=== PATIENT | male | born 1985 | race Caucasian/White ===

== ENCOUNTER 2018-12-13 14:19 | Emergency (ER) | payer BC, MEDICAID ==
[~2018-12-13] VITALS: Ht 198.1 cm; Wt 102.3 kg
[2018-12-13 14:34] VITALS: BP 108/77
[2018-12-13] MEDS ORDERED: MUPI22OI30 TOP (15:25)
== END 2018-12-13 15:38 | disposition home or self-care (01) ==
LOC: ER 14:19
DX: L73.9 Follicular disorder, unspecified (principal); M79.631 Pain in right forearm; M79.632 Pain in left forearm; Z59.0 Homelessness; Z79.899 Other long term (current) drug therapy
CPT/HCPCS: 99283

== ENCOUNTER 2021-11-15 15:25 | Emergency (ER) | payer MEDICAID ==
[~2021-11-15] VITALS: Ht 198.1 cm; Wt 82.7 kg
[2021-11-15 16:01] VITALS: BP 136/91
== END 2021-11-15 18:44 | disposition home or self-care (01) ==
LOC: ER 15:26
DX: F15.10 Other stimulant abuse, uncomplicated (principal); Z00.8 Encounter for other general examination; Z59.00 Homelessness unspecified
CPT/HCPCS: 70450; 99284

== ENCOUNTER 2023-03-09 21:57 | Emergency (ER) | payer MEDICAID ==
[~2023-03-09] VITALS: Ht 198.1 cm; Wt 85.5 kg
[2023-03-09] MEDS ORDERED: acetaminophen 325mg tablet PO ONE (22:20)
[2023-03-09 23:10] LABS: BASOPHILS % (AUTO) 0.3 % (0-1); EOSINOPHILS % (AUTO) 0 % (0-6); HEMATOCRIT 42.3 % (42.0-52.0); HEMOGLOBIN 13.9 g/dl (14.0-17.9); LYMPHOCYTES # (AUTO) 0.2 X10'3 (1.1-4.8); LYMPHOCYTES % (AUTO) 2.9 % (21-51); MEAN CORPUSCULAR HEMOGLOBIN 26.7 PG (27.0-31.0); MEAN PLATELET VOLUME 6.5 FL (7.4-10.4); MONOCYTES # (AUTO) 0.6 X10'3 (0-0.9); NEUTROPHILS # (AUTO) 7.7 X10'3 (1.8-7.7); NEUTROPHILS % (AUTO) 89.8 % (42-75); PLATELET COUNT 287 X10'3 (140-440); RED BLOOD COUNT 5.22 X10'6 (4.70-6.10); RED CELL DISTRIBUTION WIDTH 14.7 % (11.5-14.5); WHITE BLOOD COUNT 8.6 X10'3 (4.5-11.0)
[2023-03-09 23:17] LABS: ALBUMIN 3.5 G/DL (3.4-5.0); ANION GAP 7 (8-16); BLOOD UREA NITROGEN 15 MG/DL (7-18); BUN/CREATININE RATIO 12.1 (10.0-20.0); CHLORIDE 97 MMOL/L (99-107); CREATININE 1.24 MG/DL (0.60-1.10); GLUCOSE 119 MG/DL (70-104); LIPASE 26 U/L (16-77); POTASSIUM 3.6 MMOL/L (3.5-5.1); SODIUM 133 MMOL/L (135-145); TOTAL CARBON DIOXIDE 28.7 MMOL/L (24-32); eCRCL 98 ML/MIN; eGFR 65 ML/MIN
[2023-03-10] MEDS ORDERED: normal saline 1000ML IV soln IVB ONE (00:15)
[2023-03-10] MEDS ORDERED: piperacillin/tazo 4.5gm/100ml 100 ML IV ONE (00:15)
[2023-03-10] MEDS ORDERED: morphine 4 MG/ML inj SYRINge IV ONE (00:20)
[2023-03-10] MEDS ORDERED: ondansetron/PF 4mg/2ml inj IV ONE (00:20)
[2023-03-10] MEDS ORDERED: iohexol 300mg/ml 100ml inj. ONE (00:23)
[2023-03-10] MEDS ORDERED: ketorolac trometh. 30mg/ml inj. IV ONE (02:20)
[2023-03-10] MEDS ORDERED: acetaminophen 325mg tablet PO ONE (02:20)
[2023-03-10 02:37] LABS: BILIRUBIN,URINE NEGATIVE (Neg); CLARITY,URINE CLEAR (Clear); COLOR,URINE YELLOW (Yellow); GLUCOSE, URINE NEGATIVE (Neg); KETONES,URINE NEGATIVE (Neg); LEUKOCYTE ESTERASE ,URINE NEGATIVE (Neg); NITRITES, URINE NEGATIVE (Neg); OCCULT BLOOD,URINE NEGATIVE (Neg); PROTEIN,URINE NEGATIVE (Neg); UROBILINOGEN,URINE 0.2 E.U/dL (0.2-1.0)
[2023-03-10 02:47] LABS: UA COLLECTION TYPE CLN CATCH MIDSTREAM
[2023-03-10 02:53] LABS: URINE AMPHETAMINE SCREEN POSITIVE (Neg); URINE BARBITUATE SCREEN NEGATIVE (Neg); URINE BENZODIAZEPINES SCREEN NEGATIVE (Neg); URINE CANNABINOID SCREEN NEGATIVE (Neg); URINE COCAINE SCREEN NEGATIVE (Neg); URINE METHADONE SCREEN NEGATIVE (Neg); URINE OPIATE SCREEN POSITIVE (Neg); URINE PHENCYCLIDINE SCREEN NEGATIVE (Neg)
[2023-03-10] MEDS ORDERED: normal saline 1000ml 1,000 ML IV ONE (03:45)
[2023-03-10 06:01] VITALS: BP 108/62; PULSE 103; RESP 16; TEMP 98.8; O2SAT 99
== END 2023-03-10 06:00 | disposition home or self-care (01) ==
LOC: ER 21:58
DX: K40.90 Unilateral inguinal hernia, without obstruction or gangrene, not specified as recurrent (principal)
CPT/HCPCS: 36415; 74177; 80048; 80305; 81003; 83605; 83690; 84145; 85025; 87040; 96361; 96365; 96366; 96375; 99285; J1885; J2270; J2405; J2543; J3490; J7030; Q9967